=== PATIENT | female | born 1965 | race Caucasian/White ===

== ENCOUNTER 2020-06-30 22:13 | Emergency (ER) | payer OTHER ==
[~2020-06-30 22:13] MED LIST: GLUCOPHAGE 500500 MG PO; Holter Monitor; LODINE CAP 300300 MG PO; ZOFRAN4 MG PO
[2020-07-01 01:48] LABS: HEMOGLOBIN 15.3 gm/dl (12.3-15.3); RED BLOOD COUNT 5.08 M/UL (4.00-5.10); WHITE BLOOD COUNT 8.9 K/UL (4.5-11.0)
[2020-07-01 02:05] LABS: BUN/CREATININE RATIO 24 (0-10)
[2020-07-01] MEDS ORDERED: HYDROCODON-ACE1 EAC4 PO (05:50)
[2020-08-08] MEDS ORDERED: PROTONIX 40 MG40 M1 PO (08:15)
[2020-08-08] MEDS ORDERED: BUSPIRONE HCL5 MG PO (08:15)
[2020-08-08] MEDS ORDERED: JANUVIA100 MG PO (08:16)
[2020-08-08] MEDS ORDERED: VITAMIN D PO (08:16)
[2020-08-08] MEDS ORDERED: METFORMIN HCL1000 MG PO (08:16)
[2020-08-08] MEDS ORDERED: LIPITOR20 MG PO (08:16)
[2020-08-08] MEDS ORDERED: ESCITALOPRAM OX20 MG PO (08:16)
[2020-08-08] MEDS ORDERED: LANTUS SOL100 UNIT/1 SQ (08:53)
[2020-09-05] MEDS ORDERED: FAMOTIDINE20 MG PO (07:59)
[2020-09-05] MEDS ORDERED: CVS GLUCOSAMIN PO (07:59)
[2020-09-05] MEDS ORDERED: HYDROCODONE-AC1 EACH PO (08:00)
[2020-09-05] MEDS ORDERED: LIPITOR20 MG PO (08:00)
== END 2020-07-01 00:53 | disposition home or self-care (01) ==
LOC: ER1 22:13
PROVIDERS: Physician Assistant
DX: R16.0 Hepatomegaly, not elsewhere classified (principal); R19.7 Diarrhea, unspecified; E78.5 Hyperlipidemia, unspecified; E11.9 Type 2 diabetes mellitus without complications; Z88.5 Allergy status to narcotic agent; Z88.1 Allergy status to other antibiotic agents; Z79.84 Long term (current) use of oral hypoglycemic drugs
CPT/HCPCS: 36415; 71045; 80053; 81001; 82550; 82553; 83605; 83690; 83874; 84484; 85025; 87086; 99284; Q9967

== ENCOUNTER → 2020-07-24 | Outpatient (CLI) | payer OTHER ==
[~2020-07-24] MED LIST changes: +BUSPIRONE HCL5 MG PO; +CVS GLUCOSAMIN PO; +ESCITALOPRAM OX20 MG PO; +FAMOTIDINE20 MG PO; +HYDROCODON-ACE1 EAC4 PO; +HYDROCODONE-AC1 EACH PO; +JANUVIA100 MG PO; +LANTUS SOL100 UNIT/1 SQ; +LIPITOR20 MG PO; +METFORMIN HCL1000 MG PO; +PROTONIX 40 MG40 M1 PO; +VITAMIN D PO
== END ==
LOC: US 10:00
DX: R10.9 Unspecified abdominal pain (principal); R93.2 Abnormal findings on diagnostic imaging of liver and biliary tract; K76.0 Fatty (change of) liver, not elsewhere classified
CPT/HCPCS: 76700

== ENCOUNTER → 2020-08-08 | Outpatient (CLI) | payer OTHER ==
[2020-08-08 08:20] LABS: HEMOGLOBIN 14.4 gm/dl (12.3-15.3); RED BLOOD COUNT 4.9 M/UL (4.00-5.10); WHITE BLOOD COUNT 6.9 K/UL (4.5-11.0)
== END ==
LOC: US 07:11
PROVIDERS: Internal Medicine Pulmonary Disease
PROC: 0FB23ZX Excision of Left Lobe Liver, Percutaneous Approach, Diagnostic (ICD-10-PCS; principal; 2020-08-08)
DX: C22.9 Malignant neoplasm of liver, not specified as primary or secondary (principal); E11.9 Type 2 diabetes mellitus without complications; Z79.4 Long term (current) use of insulin; Z79.899 Other long term (current) drug therapy; Z88.1 Allergy status to other antibiotic agents; Z88.5 Allergy status to narcotic agent; Z88.8 Allergy status to other drugs, medicaments and biological substances
CPT/HCPCS: 82962; 85027; 85610

== ENCOUNTER → 2020-08-18 | Outpatient (CLI) | payer OTHER | LOC: MRI 13:28 | DX: M54.2 Cervicalgia (principal); C80.1 Malignant (primary) neoplasm, unspecified; M47.892 Other spondylosis, cervical region | CPT/HCPCS: 70553; 72050 ==

== ENCOUNTER → 2020-09-05 | Day surgery (SDC) | payer OTHER | END | disposition home or self-care (01) | LOC: OR 07:10 | DX: C25.9 Malignant neoplasm of pancreas, unspecified (principal); C78.7 Secondary malignant neoplasm of liver and intrahepatic bile duct; C78.00 Secondary malignant neoplasm of unspecified lung; F41.9 Anxiety disorder, unspecified; E11.9 Type 2 diabetes mellitus without complications; Z79.84 Long term (current) use of oral hypoglycemic drugs; Z80.0 Family history of malignant neoplasm of digestive organs; Z83.3 Family history of diabetes mellitus; Z87.891 Personal history of nicotine dependence | CPT/HCPCS: 71045; 77001; 82962; C1769; C1788; J1642; J7030; J7040; J7120 ==

== ENCOUNTER → 2020-11-09 | Outpatient (CLI) | payer OTHER | LOC: CT 09:21 | DX: C25.3 Malignant neoplasm of pancreatic duct (principal); R51.9 Headache, unspecified; R91.8 Other nonspecific abnormal finding of lung field; K76.89 Other specified diseases of liver; K57.30 Diverticulosis of large intestine without perforation or abscess without bleeding; R59.0 Localized enlarged lymph nodes | CPT/HCPCS: 71260; Q9967 ==

== ENCOUNTER → 2021-02-06 | Outpatient (CLI) | payer OTHER | LOC: CT 13:28 | DX: C25.3 Malignant neoplasm of pancreatic duct (principal); R51.9 Headache, unspecified; C78.7 Secondary malignant neoplasm of liver and intrahepatic bile duct; R59.0 Localized enlarged lymph nodes | CPT/HCPCS: 36415; 71260; 82565; Q9967 ==

== ENCOUNTER 2021-05-06 17:28 | Emergency (ER) | payer OTHER ==
[2021-05-06 20:11] LABS: BORDETELLA PARAPERTUSSIS Not Detected (Not Detectd); BORDETELLA PERTUSSIS Not Detected (Not Detectd); CHLAMYDIA PNEUMONIAE Not Detected (Not Detectd); CORONAVIRUS HKU1 Not Detected (Not Detectd); CORONAVIRUS NL63 Not Detected (Not Detectd); CORONAVIRUS OC43 Not Detected (Not Detectd); CORONOAVIRUS 229E Not Detected (Not Detectd); HUMAN METAPNEUMOVIRUS Not Detected (Not Detectd); HUMAN RHINOVIRUS/ENTEROVIRUS Not Detected (Not Detectd); INFLUENZA A Not Detected (Not Detectd); INFLUENZA B Not Detected (Not Detectd); MYCOPLASMA PNEUMONIAE Not Detected (Not Detectd); PARAINFLUENZA VIRUS 1 Not Detected (Not Detectd); PARAINFLUENZA VIRUS 2 Not Detected (Not Detectd); PARAINFLUENZA VIRUS 3 Not Detected (Not Detectd); PARAINFLUENZA VIRUS 4 Not Detected (Not Detectd); RESPIRATORY SYNCYTIAL VIRUS Not Detected (Not Detectd)
[2021-05-06 20:17] LABS: HEMOGLOBIN 9.5 gm/dl (12.3-15.3); RED BLOOD COUNT 3.59 M/UL (4.00-5.10); WHITE BLOOD COUNT 2.8 K/UL (4.5-11.0)
[2021-05-06 21:14] LABS: BUN/CREATININE RATIO 25 (0-10)
[2021-05-06 21:38] LABS: SARS-CoV-2 NOT DETECTED (Not Detectd)
[2021-05-06] MEDS ORDERED: DELSYM30 MG/5 ML PO (22:12)
[2021-05-06] MEDS ORDERED: Voltaren Gel 1 % TOP (22:12)
== END 2021-05-06 22:40 | disposition home or self-care (01) ==
LOC: ER1 17:28
PROVIDERS: Physician Assistant Medical
DX: R06.02 Shortness of breath (principal); R05.9 Cough, unspecified; C25.9 Malignant neoplasm of pancreas, unspecified; Z20.822 Contact with and (suspected) exposure to COVID-19; E11.9 Type 2 diabetes mellitus without complications; Z88.5 Allergy status to narcotic agent; Z88.1 Allergy status to other antibiotic agents; Z88.8 Allergy status to other drugs, medicaments and biological substances
CPT/HCPCS: 80053; 82550; 82553; 83874; 84484; 85025; 87633; 93005; 99285; Q9967

== ENCOUNTER 2021-05-15 15:55 | Emergency (ER) | payer OTHER ==
[2021-05-15 16:41] LABS: HEMOGLOBIN 10.1 gm/dl (12.3-15.3); RED BLOOD COUNT 3.84 M/UL (4.00-5.10); WHITE BLOOD COUNT 4.6 K/UL (4.5-11.0)
[2021-05-15 17:02] LABS: BUN/CREATININE RATIO 23 (0-10)
== END 2021-05-15 18:30 | disposition home or self-care (01) ==
LOC: ER1 15:55
PROVIDERS: Physician Assistant
DX: E83.52 Hypercalcemia (principal); Z85.07 Personal history of malignant neoplasm of pancreas; E11.9 Type 2 diabetes mellitus without complications; Z85.830 Personal history of malignant neoplasm of bone; Z88.8 Allergy status to other drugs, medicaments and biological substances; Z88.5 Allergy status to narcotic agent; Z88.1 Allergy status to other antibiotic agents
CPT/HCPCS: 80053; 85025; 93005; 96374; 99283; J3489; J7030

== ENCOUNTER → 2021-05-15 | Outpatient (CLI) | payer OTHER ==
[~2021-05-15] MED LIST changes: +DELSYM30 MG/5 ML PO; +Voltaren Gel 1 % TOP
== END ==
LOC: MRI 05-14 16:00
DX: C80.1 Malignant (primary) neoplasm, unspecified (principal); R51.9 Headache, unspecified; C25.3 Malignant neoplasm of pancreatic duct; R63.0 Anorexia
CPT/HCPCS: 70553; A9577

== ENCOUNTER → 2021-05-16 | Outpatient (CLI) | payer OTHER ==
[2021-05-16 10:20] LABS: BUN/CREATININE RATIO 16 (0-10)
== END ==
LOC: LAB 09:15
PROVIDERS: Emergency Medicine
DX: E83.52 Hypercalcemia (principal)
CPT/HCPCS: 36415; 80053; 83735; 84100

== ENCOUNTER 2021-05-26 04:35 | Emergency (ER) | payer OTHER ==
[2021-05-26 05:22] LABS: RED BLOOD COUNT 4.21 M/UL (4.00-5.10); WHITE BLOOD COUNT 7.7 K/UL (4.5-11.0)
[2021-05-26 05:44] LABS: BUN/CREATININE RATIO 55 (0-10)
[2021-05-26] MEDS ORDERED: ZOFRAN ODT 4 MG4 MG SL (13:19)
== END 2021-05-26 13:43 | disposition home or self-care (01) ==
LOC: ER1 04:35
PROVIDERS: Emergency Medicine
DX: E11.65 Type 2 diabetes mellitus with hyperglycemia (principal); C25.9 Malignant neoplasm of pancreas, unspecified; I81 Portal vein thrombosis
CPT/HCPCS: 74018; 80053; 81001; 82962; 83605; 83690; 85025; 93005; 96374; 96375; 99285; J2405; Q9967